=== PATIENT | male | born 1985 | race Caucasian/White ===

== ENCOUNTER 2024-11-22 21:18 | Emergency (ER) | payer BC, SELFPAY ==
--- OUTSIDE RECORDS SUMMARY | 2024-11-22 21:20 | XMS_ITS | Clinical Summary ---
Author Organization [facility] Address [address] [place] [id number] Care Team Providers Care Feedlot Manager Name Role Phone [facility] Primary Care Provider Unavailabl e Allergies No known active allergies Medications durable medical equipment (DME)Indications:Ch ronic patellofemoral pain, unspecified laterality,Acute pain of right knee 16 3 panel knee splint 1 Each 1 Active Active Problems No known active problems Resolved Problems Problem Noted Date Diagnosed Date Resolved Date RASH, OTH NONSPECIFIC SKIN ERUPTION 10/23/2000 10/01/2013 Cough 06/05/2000 10/01/2013 WOUND OPEN, FINGER W/O COMPLICATION 12/03/1999 10/01/2013 INJURY, CRUSHING, SHOULDER REGION 08/16/1999 10/01/2013 Immunizations Immunization Administration Dates Next Due DTP 01/26/1988, 7,1986,1986 MMR 05/14/1988,10/27/1987 Oral Polio Vaccine 01/26/1988, 7,1986,1986 Td, Preservative Free (age > = 7 Years) 06/15/2017 Tdap 12/30/2008 Family History Medical History Relation Name Comments Diabetes Father Relation Name Status Comments Father Alive Mother Alive Social History Tobacco Use Types Packs/Day Years Used Date Smoking Tobacco: Former Cigarettes Smokeless Tobacco: Former Alcohol Use Standard Drinks/Week Comments Yes 0 (1 standard drink = 0.6 oz pur e alcohol) Social Connections Answer Date Recorded Frequency of Communication with Friends and Fami ly Not on file 05/15/2021 Financial Resource Strain Answer Date R ecorded Difficulty of Paying Living Expenses Not on file 05/15/2021 Difficulty of Paying Living Expenses Not on file 05/15/2021 Sex and Gender Information Value Date Recorded Sex Assigned at Not on file Legal Sex Male 5:24 AM [employer] Gender Identity Not on file Sexual Orientation Not on file Obstetrics History Last Filed Vital Signs Vital Sign Reading Time Taken Comments Blood Pressure 122/82 09/01/2020 2:16 PM CDT Pulse 64 09/01/2020 2:16 PM CDT Temperature 36.3 C (97.3 F) 01/20/2017 5:06 PM CDT Respiratory Rate 15 09/01/2020 2:16 PM CDT Oxygen Saturation 99% 09/01/2020 2:16 PM CDT Inhaled Oxygen Concentration - - Weight 74.1 kg (163 lb 4.8 oz) 09/01/2020 2:16 P M CDT Height 160.5 cm (5' 3.19) 04/24/2017 10:[address] Body Mass Index 28.75 04/24/2017 10:49 AM [employer] Plan of Treatment Health Maintenance Due Date Last Done Comments HIV for age 15-65 2001 Hepatitis C screening for ag e 18-79 2004 Hepatitis B series for 19+ ( 1 of 3 - 19+ 3-dose series) 2005 BMI (ht and wt on same day) for age 18+ 04/24/2018 04/24/2017 Depression screening for age 12+ 04/24/2018 04/24/2017 Lipids for age 35-44 2021 COVID-19 vaccine series ( season) 2024 Influenza Vaccine (#1) 2025 Tetanus booster 06/15/2027 06/15/2017, 12/30/2008 Pneumococcal series for age 6-49 Aged Out No longer eligible b ased on patient's age to complete this topic Insurance [facility] Care Teams Feedlot Manager Relationship Specialty Start Date End Date [facility] PCP - General 08/21/17
[2024-11-22 21:30] VITALS: BP 135/74; PULSE 83; RESP 18; TEMP 36.7; O2SAT 99; BMI 27.5
[2024-11-22 22:18] VITALS: BP 128/70; PULSE 79; RESP 18; TEMP 36.7; O2SAT 99
--- NOTE | 2024-11-22 22:19 | ED.WOUNDLAC ---
HPI - Wound/Laceration General Chief Complaint: Laceration/Wound Stated Complaint: LAC L middle finger Time Seen by Provider: 11/22/24 21:21 Source: patient Mode of arrival: ambulatory Limitations: no limitations History of Present Illness HPI narrative: Patient is a very nice gentleman who presents here with a cut to his left 3rd finger after is trying to take a both off, is intermittently bleeding comes in with his significant other for assessment, he has no pain, no loss of function, last tetanus was updated 7 years ago. On no medications has no history of immunosuppressive her bleeding tendencies. Is right-hand dominant Patient tetanus UTD: Yes Context: accidental Associated symptoms: none Treatments prior to arrival: bandage Related Data Home Medications ?Medication ?Instructions ?Recorded ?Confirmed No Known Home Medications 11/22/24 11/22/24 Allergies Allergy/AdvReac Type Severity Reaction Status Date / Time No Known Drug Allergies Allergy Verified 11/22/24 21:32 Review of Systems Status of ROS: Reports: 6 or more systems reviewed and unremarkable except as noted in History and below PFSH [facility] Medical History No significant past medical history Surgical History No significant past surgical history Social History Smoking Status: Current some day smoker Second hand tobacco smoke exposure: Yes How often do you have a drink containing alcohol: monthly or less AUDIT-C Alcohol total score: 1 Non-prescribed substance use: denies use Exam Narrative: Exam Narrative: On examination he is in no apparent distress there is approximately 1.5 inch laceration to his left 3rd finger. Is over the pad surface, a little bit jagged. No subungual hematoma good D IP flexion extension and sensation is all intact, no evidence of foreign body and think we need an x-ray here to rule that out. I did offer him 2 options 1 was the suturing which I think old to together little bit better, the 2nd option was glue with a stack finger splint. After discussion with this he would like to go with the glue. I was able to clean it off with Hibiclens and atraumatically apply the glue, and then follow-up with a stack finger splint cap refill is excellent neurovascular status was normal postprocedure no blood loss. Const: Vital Signs, click to edit/add: Vital Signs - 24 hr 11/22/24 21:30 11/22/24 22:18 Temperature 98.0 F 98.0 F Pulse Rate [Right Pulse Oximeter] 83 79 Respiratory Rate 18 18 Blood Pressure [Ri ght Upper Arm] 135/74 128/70 Pulse Oximetry 99 99 Oxygen Delivery Me thod Room Air Room Air Documenting provider has reviewed patient's vital signs: yes Course Vital Signs Vital signs: Initial Vital Signs Temperature 98.0 F 11/22/24 21:30 Temperature Source Temporal Artery Scan 11/22/24 21:30 Pulse Rate 83 11/22/24 21:30 Respiratory Rate 18 11/22/24 21:30 Blood Pressure 135/74 11/22/24 21:30 Blood Pressure Mean 94 11/22/24 21:30 Blood Pressure Position Sitting 11/22/24 21:30 Pulse Oximetry 99 11/22/24 21:30 Oxygen Delivery Method Room Air 11/22/24 21:30 Vital Signs Temperature 98.0 F 11/22/24 21:30 Pulse Rate 83 11/22/24 21:30 Respiratory Rate 18 11/22/24 21:30 Blood Pressure 135/74 11/22/24 21:30 Pulse Oximetry 99 11/22/24 21:30 Oxygen Delivery Method Room Air 11/22/24 21:30 Temperature 98.0 F 11/22/24 22:18 Pulse Rate 79 11/22/24 22:18 Respiratory Rate 18 11/22/24 22:18 Blood Pressure 128/70 11/22/24 22:18 Pulse Oximetry 99 11/22/24 22:18 Oxygen Delivery Method Room Air 11/22/24 22:18 Discharge Plan Discharge Clinical Impression: Laceration Patient Disposition: Home w/ Parent or Adult Condition: Stable Instructions: Finger Laceration (ED), Skin Adhesive Care (ED) Additional Instructions: Home rest please do not use any antibiotic ointment on the glue, as this will break it down, wear your splint for the next 4 days after that he may take it off, that is wound will still be there, but it will be healed from the inside out. The only thing to watch out for his infection which is increasing redness, increasing pain, increasing discharge, or late finding would be fever. Please come back if these occur, try to keep it out of the water as much as possible but bathing is encouraged Activity Level: Light activity Discharge Diet: Regular Prescriptions: No Action No Known Home Medications Stand Alone Forms: [facility] Info Instructions
[2024-11-22 22:40] VITALS: BP 128/70; PULSE 79; RESP 18; TEMP 36.7
== END 2024-11-22 22:40 | disposition home or self-care (01) ==
PROVIDERS: Emergency Provider Family Medicine
DX: S61.213A Laceration without foreign body of left middle finger without damage to nail, initial encounter (principal); W26.9XXA Contact with unspecified sharp object(s), initial encounter
CPT/HCPCS: 12001; 99282; 99283